=== PATIENT | male | born 1950 | race Caucasian/White ===

== ENCOUNTER 2024-09-24 14:51 | Outpatient (CLI) | payer MEDICARE, OTHER, SELFPAY ==
--- NOTE | 2024-10-01 13:23 | W.PM.SLEEP ---
Sleep Study Details Details Interpreting Provider: Tor Date of Sleep Study: 09/24/24 Sleep Study Details: STUDY TYPE:? Home unattended ? BMI:? 27.7 ORDERING PROVIDER:? Tor INDICATION:? Concern about sleep apnea ? SLEEP SUMMARY:? 417 minutes monitored RESPIRATORY SUMMARY:? AHI 18 Low oxygen 83 7.3% of study oxygen less than 90% Snoring 97.8% PERIODIC LIMB MOVEMENTS OF SLEEP:? Not recorded CARDIAC:? Range 50-101, mean 62 beats per minute IMPRESSION:? Moderate obstructive sleep apnea with significant desaturations RECOMMENDATION: Treatment options include CPAP, dental appliance and/or airway expansion surgery.
== END 2024-09-24 14:52 | disposition home or self-care (01) ==
LOC: SLEEP 14:52
PROVIDERS: Visit Provider Otolaryngology
DX: G47.33 Obstructive sleep apnea (adult) (pediatric) (principal)
CPT/HCPCS: 95806